=== PATIENT | male | born 1970 | race Caucasian/White ===

== ENCOUNTER 2020-07-21 15:14 | Emergency (ER) | payer BC ==
[~2020-07-21] VITALS: Ht 182.9 cm; Wt 108.0 kg
[2020-07-21 15:36] VITALS: Ht 182.9 cm; Wt 108.0 kg
[2020-07-21 16:33] LABS: PLATELET COUNT 155 x10^3mcL (130-400); RED CELL DISTRIBUTION WIDTH 13.3 % (11.5-14.5)
[2020-07-21 16:41] LABS: CALCIUM 8.1 mg/dL (8.5-10.1); CARBON DIOXIDE 28.1 mmol/L (21-32); CHLORIDE SERUM 105 mmol/L (98-107); CREATININE SERUM 0.9 mg/dL (0.7-1.3); GFR1 > 60 mL/min; GLUCOSE SERUM 113 mg/dL (74-106); POTASSIUM SERUM 3.3 mmol/L (3.5-5.1); SODIUM SERUM 141 mmol/L (136-145)
[2020-07-21 16:46] LABS: ALBUMIN 3.7 g/dL (3.4-5.0); ALKALINE PHOSPHATASE 52 U/L (46-116); ALT/SGPT 26 U/L (16-63); AMYLASE 35 U/L (25-115); AST/SGOT 14 U/L (15-37); BILIRUBIN TOTAL 0.9 mg/dL (0.20-1.00); LIPASE 78 IU/L (73-393); TOTAL PROTEIN, SERUM 6.8 g/dL (6.4-8.2)
[2020-07-21 18:16] VITALS: BP 141/81
== END 2020-07-21 18:16 | disposition home or self-care (01) ==
LOC: ED 15:14
PROVIDERS: Emergency Medicine
DX: R11.13 Vomiting of fecal matter (principal)
CPT/HCPCS: Q0092